=== PATIENT | male | born 1995 | race Caucasian/White ===

== ENCOUNTER 2017-08-05 11:09 | Emergency (ER) | payer MEDICAID ==
[2017-08-05 11:16] VITALS: RESP 16; TEMP 97.9
--- NOTE | 2017-08-05 12:12 | EDPHY ---
H & P Time Seen by Provider: 08/05/17 11:36 HPI/ROS: CHIEF COMPLAINT: Left shoulder injury HISTORY OF PRESENT ILLNESS: 22-year-old male presents to the emergency department by private vehicle with pain in his left shoulder. The patient was skiing and reportedly hit a tree with his left shoulder. He was wearing a helmet. He did not hit his head or lose consciousness. He denies a headache. Denies neck or back pain. Denies chest pain or difficulty breathing. Denies abdominal pain. Denies paresthesias in his upper or lower extremities. The patient did continue to ski yesterday afternoon after the incident happened for 1 more run and he realized that he was having difficulty planting his pole while skiing. REVIEW OF SYSTEMS: Constitutional: No fever, no chills. Eyes: No double or blurry vision. ENT: No sore throat. Respiratory: No cough, no shortness of breath. Cardiac: No chest pain. Gastrointestinal: No abdominal pain, vomiting or diarrhea. Genitourinary: No dysuria. Musculoskeletal: No neck or back pain. Skin: No rashes. Neurological: No headache. Past Medical/Surgical History: Negative Social History: Single and lives in [place] Smoking Status: Never smoked Physical Exam: General Appearance: Alert, no distress. No visible signs of trauma to his head. He is mentating normally and answering questions appropriately. Eyes: Pupils equal and round. Extraocular motions are all intact. ENT: Mouth: Mucous membranes moist. Respiratory: No wheezing, rhonchi, or rales, lungs are clear to auscultation. Cardiovascular: Regular rate and rhythm. Gastrointestinal: Abdomen is soft and nontender, no masses, no rebound or guarding, bowel sounds normal. Neurological: Alert and oriented x 3, cranial nerves II through XII grossly intact Skin: Warm and dry, no rashes. Musculoskeletal: Nontender to palpate along the cervical, thoracic or lumbar spine. Neck is supple. Extremities: Patient has tenderness with palpation over the left AC joint. There is some mild swelling associated with this as well. No ecchymosis. No abrasions. Normal sensation to light touch with normal 2 point discrimination. Limited internal rotation secondary to pain. Full range of motion of his left wrist and elbow. He has some mild pain with palpation over the medial aspect of the left wrist overlying the distal ulna and pisiform. No palpable crepitus or other bony abnormality associated with the left wrist. Specifically no pain with palpation in the anatomic snuffbox or placing axial load. Psychiatric: Patient is oriented X 3, there is no agitation. Constitutional: Initial Vital Signs Temperature (C) 36.6 C 08/05/17 11:13 Heart Rate 54 L 08/05/17 11:13 Respiratory Rate 16 08/05/17 11:13 Blood Pressure 123/61 H 08/05/17 11:13 O2 Sat (%) 98 08/05/17 11:13 O2 Delivery Mode Room Air Allergies/Adverse Reactions: Sulfa (Sulfonamide Antibiotics) Allergy (Verified 08/05/17 11:13) Home Medications: Medication Instructions Recorded Suboxone 12 mg-3 mg Sl Film 08/05/17 Medical Decision Making - Diagnostics Imaging Results: Imaging Impressions Shoulder X-Ray 08/05/17 11:18 Impression: 1. Negative for fracture. 2. Suspect grade 1 left AC separation. Results called and discussed with Sun Garcia on 08/05/2017 at 11:54 Imaging: Discussed imaging studies w/ scallop binder Radiologist, I viewed and interpreted images myself Procedures: Patient was placed in a sling for comfort and examined post application in good placement with normal [employer]. ED Course/Re-evaluation: 22-year-old male presents with left shoulder injury. X-rays reveal AC separation which 5th clinically. Patient was placed in a sling and given orthopedic referral. Differential Diagnosis: Including but not limited to fracture, dislocation, contusion, sprain, AC separation Departure - Departure Disposition: Home, Routine, Self-Care Clinical Impression: Separation of left acromioclavicular joint Qualifiers: Encounter type: initial encounter Qualified Code(s): S43.102A - Unspecified dislocation of left acromioclavicular joint, initial encounter Condition: Good Instructions: Acromioclavicular Separation (ED) Additional Instructions: Sling for comfort and support. Ibuprofen 600 mg every 8 hr as needed for pain. Activity as tolerated. Avoid heavy lifting. Follow up with orthopedic surgeon next week to recheck. Referrals: Randall Bishop MD [Medical Doctor] - 5-7 days, call for appt. (Orthopedic surgeon on-call)
[2017-08-05 12:33] VITALS: BP 133/78; PULSE 62; O2SAT 95
== END 2017-08-05 12:33 | disposition home or self-care (01) ==
DX: S43.102A Unspecified dislocation of left acromioclavicular joint, initial encounter (principal); V00.328A Other snow-ski accident, initial encounter; Y93.23 Activity, snow (alpine) (downhill) skiing, snowboarding, sledding, tobogganing and snow tubing